=== PATIENT | female | born 1960 | race Caucasian/White ===

== ENCOUNTER → 2020-09-15 10:21 | Outpatient (CLI) | payer OTHER, SELFPAY ==
--- NOTE | 2020-09-15 10:26 | DI.RAD.S_ITS ---
PROCEDURE: XR TIBIA FUBULA RT 2V INDICATIONS: contusion with large hematoma medial aspect, clinical concern for fx TECHNIQUE: 2 views of the tibia and fibula were acquired. COMPARISON: None. FINDINGS: Bones: No fractures or dislocations. No suspicious bony lesions. Age-appropriate bony degenerative changes are seen. Soft tissues: Soft tissue swelling is seen. IMPRESSION: No displaced fractures are seen on these plain films. If there is point tenderness (or other clinical suspicion for a fracture not seen on these images) then please consider a dedicated CT or a short-term followup plain film series for further evaluation. Soft tissue swelling can be seen. Dictated by: Zacarias Hardy M.D. on 09/15/2020 at 10:15 Approved by: Zacarias Hardy M.D. on 09/15/2020 at 10:16
== END ==
PROVIDERS: Referring Provider Physician Assistant; Visit Provider Physician Assistant
DX: S80.11XA Contusion of right lower leg, initial encounter (principal); M79.89 Other specified soft tissue disorders; X58.XXXA Exposure to other specified factors, initial encounter
CPT/HCPCS: 73590

== ENCOUNTER → 2024-05-23 14:45 | Outpatient (CLI) | payer OTHER, SELFPAY ==
--- NOTE | 2024-05-23 14:48 | DI.RAD.S_ITS ---
PROCEDURE: XR RIBS LT MIN 3V W CXR1V INDICATIONS: left arm pain, arm pain and maxilla pain after fall TECHNIQUE: 2 views of the ribs were acquired, along with a single view chest. COMPARISON: None. FINDINGS: Surgical changes and devices: None. Bones and chest wall: No fractures or dislocations. No suspicious bony lesions. Overlying soft tissues appear unremarkable. Lungs and pleura: No pleural effusions or pneumothorax. Lungs appear clear. Mediastinum: Mediastinal contours appear normal. Heart size is normal. IMPRESSION: No displaced rib fracture or pneumothorax. Dictated by: Jomar Talamantes M.D. on 05/23/2024 at 16:05 Approved by: Jomar Talamantes M.D. on 05/23/2024 at 16:06
--- NOTE | 2024-05-23 14:48 | DI.RAD.S_ITS ---
PROCEDURE: XR HUMERUS LT 2V INDICATIONS: left arm pain, arm pain and maxilla pain after fall TECHNIQUE: 2 views of the humerus were acquired. COMPARISON: None. FINDINGS: Bones: No fractures or dislocations. No suspicious bony lesions. Soft tissues: No suspicious soft tissue calcifications. IMPRESSION: No acute bony abnormality. Dictated by: Jomar Talamantes M.D. on 05/23/2024 at 16:06 Approved by: Jomar Talamantes M.D. on 05/23/2024 at 16:07
--- NOTE | 2024-05-23 14:48 | DI.RAD.S_ITS ---
PROCEDURE: XR ORBIT LT INDICATIONS: left arm pain, arm pain and maxilla pain after fall TECHNIQUE: 4 views of the orbits acquired. COMPARISON: None. FINDINGS: Bones: No fractures; orbital rims appear intact throughout. No suspicious bony lesions. Visualized sinuses appear clear. Soft tissues: No suspicious soft tissue calcifications or densities. IMPRESSION: No displaced fracture. Dictated by: Jomar Talamantes M.D. on 05/23/2024 at 16:07 Approved by: Jomar Talamantes M.D. on 05/23/2024 at 16:08
== END ==
PROVIDERS: Referring Provider Family Medicine; Visit Provider Family Medicine
DX: S05.92XA Unspecified injury of left eye and orbit, initial encounter (principal); M79.602 Pain in left arm; R07.81 Pleurodynia; W19.XXXA Unspecified fall, initial encounter
CPT/HCPCS: 70200; 71101; 73060

== ENCOUNTER → 2025-06-16 11:43 | Outpatient (CLI) | payer OTHER, SELFPAY | PROVIDERS: Visit Provider Nurse Practitioner Family | DX: S81.801A Unspecified open wound, right lower leg, initial encounter (principal) | CPT/HCPCS: 87070; 87205 ==